=== PATIENT | female | born 1930 | race Caucasian/White ===

== ENCOUNTER 2017-04-27 17:06 | Emergency (ER) | payer MEDICARE, BC ==
[~2017-04-27 17:06] MED LIST: ACETAMINOPHEN325 MG PO; ADVIL200 MG PO; ARICEPT10 MG PO; ATIVAN0.5 MG PO; BACTRIM DS TABL1 TAB PO; CELEXA10 MG PO; CELEXA20 MG PO; DEPAKOTE500 MG PO; FERROUS SULFAT325 MG PO; GABAPENTIN100 MG PO; KLONOPIN0.5 MG; KLONOPIN0.5 MG PO; MAALOX ADVANCE355 ML PO; MILK OF MAGNESI30 ML PO; NAMENDA5 MG PO; PERPHENAZINE2 MG PO; PROTONIX I40 MG/VIAL PO; PROTONIX40 MG PO; REMERON15 MG PO; TRAZODONE HCL50 MG PO; ZOLOFT50 MG PO
== END 2017-04-27 23:03 | disposition home or self-care (01) ==
LOC: D.ER 17:06
DX: S70.02XA Contusion of left hip, initial encounter (principal); W19.XXXA Unspecified fall, initial encounter; Y93.89 Activity, other specified; Y92.129 Unspecified place in nursing home as the place of occurrence of the external cause; G30.9 Alzheimer's disease, unspecified; F02.80 Dementia in other diseases classified elsewhere, unspecified severity, without behavioral disturbance, psychotic disturbance, mood disturbance, and anxiety; K56.41 Fecal impaction